=== PATIENT | male | born 1985 | race Caucasian/White ===

== ENCOUNTER 2018-06-09 00:38 | Emergency (ER) | payer OTHER ==
[2018-06-09] MEDS ORDERED: ASPIRIN 81 MG TABLET, CHEWABLE PO ONE (01:30)
--- NOTE | 2018-06-09 01:33 | ER Document Report ---
ED Medical Screen (RME) - General Chief Complaint: Chest Pain Stated Complaint: chest pain, short of breath Time Seen by Provider: 06/09/18 01:30 Notes: Patient is a 32-year-old male presents the emergency department complaining of sharp chest pains in the center of his chest. Patient states onset 3 hours ago. Patient states initially he was sitting on the couch when the chest pain started. States lying flat had made the chest pain worse. Patient states he does have a history of indigestion and initially thought it was indigestion. States the pain then became sharp in nature which is very unlike his indigestion which is what prompted his emergency room visit. Past medical history: GERD, migraines, insomnia, hyperlipidemia Medications: Prilosec, Topamax, Maxalt, trazodone Allergies: None Physical exam: Lung sounds clear and equal all reyes, chest pain is nonreproducible, no crepitus, or erythema seen or felt on chest examination. HEART: Regular rate and rhythm. No murmur I have greeted and performed a rapid initial assessment of this patient. A comprehensive ED assessment and evaluation of the patient, analysis of test results and completion of the medical decision making process will be conducted by additional ED providers. - Related Data Allergies/Adverse Reactions: No Known Allergies Allergy (Verified 06/09/18 00:41) Physical Exam - Vital signs Vitals: Temp Pulse Resp BP Pulse Ox 97.8 F 65 18 125/76 97 06/09/18 00:50 06/09/18 00:50 06/09/18 00:50 06/09/18 00:50 06/09/18 00:50 Course - Vital Signs Vital signs: Temp Pulse Resp BP Pulse Ox 97.8 F 65 18 125/76 97 06/09/18 00:50 06/09/18 00:50 06/09/18 00:50 06/09/18 00:50 06/09/18 00:50 Doctor's Discharge - Discharge Referrals: MOISÉS CALDERON MD [Primary Care Provider] - Follow up as needed
[2018-06-09 02:47] LABS: ABSOLUTE BASOPHILS # (AUTO) 0.1 10^3/uL (0.0-0.2); ABSOLUTE EOSINOPHILS # (AUTO) 0.1 10^3/uL (0.0-0.6); ABSOLUTE LYMPHOCYTES (AUTO) 2.1 10^3/uL (0.5-4.7); ABSOLUTE MONOCYTES (AUTO) 0.5 10^3/uL (0.1-1.4); ABSOLUTE NEUT (AUTO) 3.6 10^3/uL (1.7-8.2); BASOPHILS % (AUTO) 0.8 % (0-2); EOSINOPHILS % (AUTO) 1.5 % (0-6); HEMATOCRIT 47.2 % (37.9-51.0); HEMOGLOBIN 16.5 g/dL (13.5-17.0); LYMPHOCYTES % (AUTO) 33.6 % (13-45); MEAN CORPUSCULAR HEMOGLOBIN 32.1 pg (27.0-33.4); MEAN CORPUSCULAR HGB CONC 35.1 g/dL (32.0-36.0); MEAN CORPUSCULAR VOLUME 92 fl (80-97); MONOCYTES % (AUTO) 7.5 % (3-13); PLATELET COUNT 212 10^3/uL (150-450); RED BLOOD COUNT 5.16 10^6/uL (4.35-5.55); RED CELL DISTRIBUTION WIDTH 12.6 % (11.5-14.0); SEGMENTED NEUTROPHILS % (AUTO) 56.6 % (42-78); TOTAL CELLS COUNTED % (AUTO) 100 %; WHITE BLOOD COUNT 6.3 10^3/uL (4.0-10.5)
--- NOTE | 2018-06-09 03:08 | RADIOLOGY REPORT (SQ) ---
EXAM DESCRIPTION: X-ray single view chest. CLINICAL HISTORY: 32 years Male, cp COMPARISON: None. TECHNIQUE: Single portable view of the chest performed on 06/09/2018 at 2:41 AM FINDINGS: The lungs are well expanded and are clear. There is no evidence of a pneumothorax. The cardiac silhouette is normal in size and configuration. The mediastinal contours are normal. No acute osseous abnormality is identified. There are degenerative changes of the left glenohumeral joint. No focal soft tissue abnormalities are seen. Lines and tubes: None. IMPRESSION: No evidence of acute intrathoracic disease.
[2018-06-09 03:10] LABS: ALANINE AMINOTRANSFERASE 53 U/L (21-72); ALBUMIN 4.5 g/dL (3.5-5.0); ALKALINE PHOSPHATASE 42 U/L (38-126); ANION GAP 10 (5-19); ASPARTATE AMINO TRANSFERASE 31 U/L (17-59); BILIRUBIN,DIRECT 0.3 mg/dL (0.0-0.4); BILIRUBIN,TOTAL 0.7 mg/dL (0.2-1.3); BLOOD UREA NITROGEN 24 mg/dL (7-20); CALCIUM 10.1 mg/dL (8.4-10.2); CARBON DIOXIDE 24 mmol/L (22-30); CHLORIDE 110 mmol/L (98-107); CREATINE KINASE 163 U/L (55-170); GLUCOSE 99 mg/dL (75-110); POTASSIUM 3.7 mmol/L (3.6-5.0); TOTAL PROTEIN 7.1 g/dL (6.3-8.2)
[2018-06-09 03:22] LABS: CREATINE KINASE MB 0.84 ng/mL (<4.55)
[2018-06-09 03:24] LABS: TROPONIN I < 0.012 ng/mL
--- NOTE | 2018-06-09 05:34 | ER Document Report ---
Doctor's Note Notes: 06/09/18 05:23 I found a quick triage evaluation the patient. Reviewed his labs and troponin is negative his EKG looks good. His chest x-ray looks normal. I reviewed the triage note from JOSEE and talked to the patient. Patient has pain that is intermittent sharp radiating to his back is worse when he lays flat. He does not have a history of any coronary disease or cardiac risk factors. He does have some family history but all family members that had MIs were of older age. No known family members having MIs at young age. Pain is worse when he lays flat. It is better when he sits up. He does have history of acid reflux disease but says this feels different. Pain is not worse with taking a deep breath. No recent leg pain or leg swelling. He does not have a sedentary job. He is usually up and walking on his feet throughout his entire job. I have ordered a repeat troponin to make sure this stays negative and then patient will be reassessed. EKG does not have any concerning findings.
--- NOTE | 2018-06-09 06:24 | ER Document Report ---
ED General - General Chief Complaint: Chest Pain Stated Complaint: chest pain, short of breath Time Seen by Provider: 06/09/18 01:30 Notes: Patient is a 32-year-old male that presents to the emergency department for chief complaint of chest pain. The patient reports that the pain started yesterday. The currently rate the pain as 0 out of 10, and described as aching this in the middle of the chest. They have had associated shortness of breath sensation. Denies any nausea, vomiting. Their risk factors for heart disease include family history of coronary disease in the 50s, hyperlipidemia. Patient states he does have a history of esophageal reflux disease, but is also taking NSAIDs for arthritis, he has been taking his Prilosec, and it did not seem to help with this so that is why he decided come to the ED because of risk factors and his family. He is currently not having any pain, but when he was having pain he described as a 4 out of 10. Aching in the middle of his chest, occasionally sharp. Past Medical History: GERD, insomnia, PTSD, osteoarthritis Past Surgical History: Shoulder surgery, hernia repair Social History: Denies current tobacco, alcohol or drug use. Family History: Reviewed and noncontributory for presenting illness Allergies: Reviewed, see documented allergy list. REVIEW OF SYSTEMS: Other than noted above, the 12 point review of systems was reviewed with the patient and were negative, all pertinent findings are included in the HPI. PHYSICAL EXAMINATION: Vital signs reviewed, nursing noted reviewed. GENERAL: Well-appearing, well-nourished and in no acute distress. HEAD: Atraumatic, normocephalic. EYES: Eyes appear normal, extraocular movements intact, sclera anicteric, conjunctiva are normal. ENT: nares patent, oropharynx clear without exudates. Moist mucous membranes. NECK: Normal range of motion, supple without lymphadenopathy LUNGS: Breath sounds clear to auscultation bilaterally and equal. No wheezes rales or rhonchi. HEART: Regular rate and rhythm without murmurs ABDOMEN: Soft, nontender, normoactive bowel sounds. No rebound, guarding, or rigidity. No masses appreciated. EXTREMITIES: Nontender, good range of motion, no pitting or edema. NEUROLOGICAL: No focal neurological deficits. Moves all extremities spontaneously Motor and sensory grossly intact on exam. PSYCH: Normal mood, normal affect. SKIN: Warm, Dry, normal turgor, no rashes or lesions noted on exposed skin - Related Data Allergies/Adverse Reactions: No Known Allergies Allergy (Verified 06/09/18 00:41) Past Medical History - Social History Smoking Status: Never Smoker Family History: Reviewed & Not Pertinent - Past Medical History Cardiac Medical History: Reports: Hx Hypercholesterolemia Neurological Medical History: Reports: Hx Migraine Past Surgical History: Reports: Hx Appendectomy, Hx Orthopedic Surgery - shoulder Physical Exam - Vital signs Vitals: Temp Pulse Resp BP Pulse Ox 97.8 F 65 18 125/76 97 06/09/18 00:50 06/09/18 00:50 06/09/18 00:50 06/09/18 00:50 06/09/18 00:50 Course - Re-evaluation Re-evalutation: Presentation of chest pain in an otherwise well appearing patient. Low clinical suspicion for ACS given clinical history, exam, EKG without ST elevations or depressions, and negative initial troponin. HEART score less than or equal to 3. PE also seems unlikely given clinical history, absence of tachycardia or dyspnea. Patient is PERC criteria negative. CXR without evidence of pneumothorax or pneumonia. No widened mediastinum. Aortic dissection also seems unlikely given history, symmetric pulses, CXR, and vitals. HEART Score: History 0 ECG 0 Age 0 Risk Factors 1 Troponin 0 Total: 1 Chest pain in a patient without evidence of cardiac or other serious etiology on workup today. I discussed with patient that, based on their age, risk factors and emergency department testing today, the likelihood that their symptoms are related to a heart attack is very low (estimated risk of heart attack or over the next 30 days of less than 1%). The patient demonstrates decision making capacity and has verbalized an understanding of these risks to me. Based on this, the patient has chosen to follow-up as an outpatient. Usual chest pain return precautions reviewed. The patient states understanding and agreement with this plan. - Vital Signs Vital signs: Temp Pulse Resp BP Pulse Ox 97.8 F 65 18 125/76 98 06/09/18 00:50 06/09/18 00:50 06/09/18 00:50 06/09/18 00:50 06/09/18 06:19 - Laboratory Result Diagrams: 06/09/18 02:28 06/09/18 02:28 Laboratory results interpreted by me: 12/14/18 02:28 Chloride 110 H BUN 24 H - EKG Interpretation by Me Additional EKG results interpreted by me: EKG demonstrates sinus rhythm with a ventricular rate of 63 bpm, normal axis, normal intervals, there is no evidence of acute ischemia on this EKG. Discharge - Discharge Clinical Impression: Chest pain Condition: Stable Disposition: HOME, SELF-CARE Instructions: Chest Pain of Unclear Cause ([facility]), Reflux Disease (GERD) ([facility]) Referrals: MOISÉS CALDERON MD [ACTIVE STAFF] - Follow up in 3-5 days ANA BRYAN MD [ACTIVE STAFF] - Follow up in 3-5 days (cardiology, follow-up for stress test. )
[2018-06-09 07:18] VITALS: BP 125/81
--- NOTE | 2018-06-09 10:04 | EKG REPORT ---
SEVERITY:- NORMAL ECG - SINUS RHYTHM : Confirmed by: Seema García MD 09-Jun-2018 10:02:47
--- NOTE | 2018-06-12 00:56 | EKG REPORT ---
SEVERITY:- NORMAL ECG - SINUS RHYTHM ST ELEV, PROBABLE NORMAL EARLY REPOL PATTERN : Confirmed by: Seema García MD 12-Jun-2018 00:55:34
== END 2018-06-09 06:25 | disposition home or self-care (01) ==
LOC: ER 00:38
DX: R07.9 Chest pain, unspecified (principal); R06.02 Shortness of breath; K21.9 Gastro-esophageal reflux disease without esophagitis; E78.5 Hyperlipidemia, unspecified
CPT/HCPCS: 36415; 71045; 80053; 82550; 82553; 84484; 85025; 93005; 93010; 99285

== ENCOUNTER 2020-04-25 16:23 | Emergency (ER) | payer OTHER ==
--- NOTE | 2020-04-25 17:16 | ER Document Report ---
HPI - HPI Patient complains to provider of: elbow pain Time Seen by Provider: 04/25/20 17:07 Pain Level: 3 Notes: Patient is a 34-year-old male with history of migraines presenting today with right elbow pain. He was tightening a bolt today at work when his arm slipped and he hit his elbow hard on a metal surface. It was immediately painful but there was no swelling, erythema, deformity, or loss of sensation. He still has full range of motion of the elbow. Took a muscle relaxer prior to coming to the ED. He is right-hand dominant. - ROS Systems Reviewed and Negative: Yes All other systems reviewed and negative - CONSTITUTIONAL Constitutional: DENIES: Fever, Chills - EENT EENT: DENIES: Sore Throat, Ear Pain, Congestion - NEURO Neurology: DENIES: Headache, Weakness - CARDIOVASCULAR Cardiovascular: DENIES: Chest pain - RESPIRATORY Respiratory: DENIES: Trouble Breathing, Coughing - GASTROINTESTINAL Gastrointestinal: DENIES: Abdominal Pain, Nausea, Patient vomiting, Diarrhea - MUSCULOSKELETAL Musculoskeletal: REPORTS: Extremity pain Notes: Right elbow pain - DERM Skin Color: Normal Skin Problems: None Past Medical History - General Information source: Patient - Social History Smoking Status: Never Smoker Chew tobacco use (# tins/day): No Frequency of alcohol use: None Drug Abuse: None Family History: Reviewed & Not Pertinent Patient has homicidal ideation: No - Past Medical History Cardiac Medical History: Reports: Hx Hypercholesterolemia Neurological Medical History: Reports: Hx Migraine Past Surgical History: Reports: Hx Appendectomy, Hx Orthopedic Surgery - shoulder Vertical Provider Document - CONSTITUTIONAL Agree With Documented VS: Yes General Appearance: WD/WN, No Apparent Distress - HEENT HEENT: Atraumatic, Normocephalic, PERRLA - NECK Neck: Normal Inspection, Supple - RESPIRATORY Respiratory: Breath Sounds Normal, No Respiratory Distress. negative: Rales, Rhonchi, Wheezing - CARDIOVASCULAR Cardiovascular: Regular Rate, Regular Rhythm, No Murmur - GI/ABDOMEN Gastrointestinal: Abdomen Soft, Abdomen Non-Tender, No Organomegaly - BACK Back: Normal Inspection - MUSCULOSKELETAL/EXTREMETIES Notes: There is specific slight tenderness to the olecranon of the right elbow. There is no edema or ecchymosis to the skin here. There is no other tenderness to palpation of the elbow joint. There is no tenderness to palpation to the forearm or the wrist of the right upper extremity. There is no tenderness to palpation to the right shoulder. Patient has full range of motion of his right upper extremity against resistance in both flexion extension with 5 out of 5 strength. Handgrip is 5 out of 5 bilaterally. There is no snuffbox tenderness. Radial pulses are intact and equal. Cap refill is less than 2 seconds in all fingers. - NEURO Level of Consciousness: Awake, Alert, Appropriate Motor/Sensory: No Motor Deficit, No Sensory Deficit - DERM Integumentary: Warm, Dry, No Rash Course - Re-evaluation Re-evalutation: Impression: Right elbow contusion. Patient has a negative x-ray for fracture. I have encouraged him to ice the area and take NSAIDs as well as muscle relaxant. I sent Naprosyn for him to the pharmacy. He states that he has diclofenac at home and I told him that he can choose one of the 2 NSAIDs to take but cannot take both. Have encouraged him to return if any worsening symptoms. Patient agrees with the plan. - Vital Signs Vital signs: Temp Pulse Resp BP Pulse Ox 98.0 F 69 18 133/78 H 98 04/25/20 16:27 04/25/20 16:27 04/25/20 16:27 04/25/20 16:27 04/25/20 16:27 - Diagnostic Test Radiology reviewed: Image reviewed, Reports reviewed Discharge - Discharge Clinical Impression: Right elbow pain Contusion of right elbow Qualifiers: Encounter type: initial encounter Qualified Code(s): S50.01XA - Contusion of right elbow, initial encounter Condition: Stable Disposition: HOME, SELF-CARE Instructions: Contusion ([facility]), Ice & Elevation ([facility]) Additional Instructions: Ice the elbow 3 times a day for 20 minutes at a time. Today on your x-ray there is no fracture. Monitor for any worsening pain. Take medicines as prescribed. Return if any worsening symptoms. Follow-up with primary care. Prescriptions: Naproxen [Naprosyn 250 mg Tablet] 250 mg PO BID #30 tablet Forms: Return to Work Referrals: [facility] [[facility] Provider] - Follow up in 1 week
--- NOTE | 2020-04-25 17:50 | RADIOLOGY REPORT (SQ) ---
EXAM DESCRIPTION: ELBOW RIGHT OVER 2 VIEWS IMAGES COMPLETED DATE/TIME: 04/25/2020 4:30 pm REASON FOR STUDY: elbow injury. COMPARISON: None. NUMBER OF VIEWS: Four views. TECHNIQUE: AP, lateral, and both oblique radiographic images acquired of the right elbow. LIMITATIONS: None. FINDINGS: MINERALIZATION: Normal. BONES: No acute fracture or dislocation. No worrisome bone lesions. JOINT: No effusion. SOFT TISSUES: No soft tissue swelling. No foreign body. OTHER: No other significant finding. IMPRESSION: NEGATIVE STUDY OF THE RIGHT ELBOW. NO RADIOGRAPHIC EVIDENCE OF ACUTE INJURY. TECHNICAL DOCUMENTATION: JOB ID: [id number] 2010 [employer]- All Rights Reserved Reading location - IP/workstation name: [email or web address]
[2020-04-25 18:30] VITALS: BP 133/80
== END 2020-04-25 18:05 | disposition home or self-care (01) ==
LOC: ER 16:23
DX: S50.01XA Contusion of right elbow, initial encounter (principal); W22.8XXA Striking against or struck by other objects, initial encounter; Y99.0 Civilian activity done for income or pay
CPT/HCPCS: 99283